=== PATIENT | male | born 1950 | race Caucasian/White ===

== ENCOUNTER 2016-05-16 14:07 | Observation (INO) | payer OTHER ==
[2016-05-16 14:17] VITALS: BMI 29.1
--- NOTE | 2016-05-16 16:03 | PDOC ---
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 Patients states he was at rehab when he kept hitting his chest and saying dolor. Patients states he also had a low blood pressure at the time. Denies vomiting diarrhea. Denies fever, chills, SOB. History is limited because patient is verbally limited. <Roni Luong - Last Filed: 05/16/16 17:13> <Brittny Martino - Last Filed: 05/16/16 22:18> - General Chief Complaint: Chest Pain Stated Complaint: CHEST PAIN Time Seen by Provider: 05/16/16 16:02 Past History <Roni Luong - Last Filed: 05/16/16 17:13> - Past Medical History CVA: Yes (the fascia, right-sided paralysis) GI Disorders: Yes Disorders: Yes (PROSTATE) HTN: Yes Hypercholesterolemia: Yes Psychiatric Problems: Yes - Surgical History Abdominal Surgery: Yes (HERNIA) - Psycho/Social/Smoking Cessation Hx Suicidal Ideation: No Smoking Status: No (QUIT 2 YRS AGO.) Smoking History: Never smoked Number of Cigarettes Smoked Daily: 0 Information on smoking cessation initiated: No <Brittny Martino - Last Filed: 05/16/16 22:18> - Past Medical History Allergies/Adverse Reactions: Allergies Allergy/AdvReac Type Severity Reaction Status Date / Time No Known Allergies Allergy Verified 05/16/16 14:17 Home Medications: Ambulatory Orders Aspirin Coated [Ecotrin] 81 mg PO DAILY 10/13/12 Baclofen 20 mg PO BID 10/13/12 Fenofibrate 160 mg PO DAILY 10/13/12 Paroxetine HCl [Paxil] 10 mg PO DAILY 10/13/12 Simvastatin [Zocor] 40 mg PO HS 10/13/12 Tamsulosin HCl 0.4 mg PO DAILY 10/13/12 Docusate Sodium [Colace -] 100 mg PO DAILY 05/16/16 Omeprazole 40 mg PO DAILY 05/16/16 Review of Systems - Review of Systems Able to Perform ROS?: No Comments:: 05/16/16 16:29 Limited. <Roni Luong - Last Filed: 05/16/16 17:13> *Physical Exam - Vital Signs Last Vital Signs Temp Pulse Resp BP Pulse Ox 98 F 100 H 18 112/75 93 L 05/16/16 14:09 05/16/16 14:09 05/16/16 14:09 05/16/16 14:09 05/16/16 14:09 - Physical Exam Comments: 05/16/16 16:29 GENERAL: Awake, alert, and fully oriented, in no acute distress HEAD: No signs of trauma EYES: PERRLA, EOMI, sclera anicteric, conjunctiva clear ENT: Auricles normal inspection, hearing grossly normal, nares patent, oropharynx clear without exudates. Moist mucosa NECK: Normal ROM, supple, no lymphadenopathy, JVD, or masses LUNGS: Breath sounds equal, clear to auscultation bilaterally. No wheezes, and no crackles HEART: Regular rate and rhythm, normal S1 and S2, no murmurs, rubs or gallops ABDOMEN: Soft, nontender, normoactive bowel sounds. No guarding, no rebound. No masses EXTREMITIES: Normal range of motion, no edema. No clubbing or cyanosis. No cords, erythema, or tenderness NEUROLOGICAL: Cranial nerves II through XII grossly intact. Normal speech, normal gait SKIN: Warm, Dry, normal turgor, no rashes or lesions noted. <ArceniojoannaRoni khan - Last Filed: 05/16/16 17:13> - Vital Signs Last Vital Signs Temp Pulse Resp BP Pulse Ox 98 F 100 H 18 112/75 93 L 05/16/16 14:09 05/16/16 14:09 05/16/16 14:09 05/16/16 14:09 05/16/16 14:09 <Brittny Martino - Last Filed: 05/16/16 22:18> Heart Score/ECG Review - ECG Impressions Comment:: EKG 14:14- tachycardia 100 bpm, no acute ST/T changes <Brittny Martino - Last Filed: 05/16/16 22:18> ED Treatment Course - LABORATORY CBC & Chemistry Diagram: 05/16/16 16:05 05/16/16 16:05 - ADDITIONAL ORDERS Additional order review: 05/16/16 16:05 RBC 4.86 MCV 90.6 MCHC 33.0 RDW 13.6 MPV 9.0 Neutrophils % 75.6 Lymphocytes % 15.7 D Monocytes % 7.2 Eosinophils % 1.0 D Basophils % 0.5 <Roni Luong - Last Filed: 05/16/16 17:13> - LABORATORY CBC & Chemistry Diagram: 05/16/16 16:05 05/16/16 16:05 - RADIOLOGY Radiology Studies Ordered: Category Date Time Status CHEST PA & LAT [RAD] Stat Radiology 05/16/16 15:33 Completed <Brittny Martino - Last Filed: 05/16/16 22:18> Medical Decision Making - Medical Decision Making 05/16/16 19:[address] Ching. He has very limited verbal communication, but today was indicating to his partner that he was having chest pain. He was noted to have low BP in rehab, as well. Unable to get any further details due to his limited communication. Labs so far have been negative. He was noted to have low O2Sat on initial evaluation. I have added a flu swab and CTA to r/o PE (although D-dimer is negative, cannot get any history from patient, so cannot definitely say whether or not it can be ruled in or out by clinical history). DDx includes ACS, PE, pna, pleural effusion. Likely admission. <Brittny Martino - Last Filed: 05/16/16 22:18> *DC/Admit/Observation/Transfer - Attestations Scribe Attestion: 05/16/16 16:29 Documentation prepared by Roni Luong, acting as medical or surgical instrument maker for Brittny Martino MD, . <Roni Luong - Last Filed: 05/16/16 17:13> <Brittny Martino - Last Filed: 05/16/16 22:18> Diagnosis at time of Disposition: Chest pain - Referrals
[2016-05-16 16:17] LABS: BASOPHIL 0.5 % (0-2.0); MCH 29.9 pg (25.7-33.7); MEAN CELL VOLUME 90.6 fl (80-96); NEUTROPHILS 75.6 % (42.8-82.8); PLATELET COUNT 249 K/MM3 (134-434); RDW 13.6 % (11.9-15.9); WHITE BLOOD COUNT 8.8 K/mm3 (4.0-10.0)
[2016-05-16 17:05] LABS: ALBUMIN 3.5 g/dl (3.4-5.0); ANION GAP 12 (8-16); CALCIUM 8.9 mg/dL (8.5-10.1); CO2 24 mmol/L (21-32); GLUCOSE,RANDOM 107 mg/dL (74-106); SGOT/AST 45 U/L (15-37); SGPT/ALT 60 U/L (12-78)
[2016-05-16 17:09] LABS: ALK PHOS 73 U/L (45-117); BILIRUBIN,TOTAL 0.5 mg/dL (0.2-1.0); TOT PROT 7.3 g/dl (6.4-8.2); TROPONIN I < 0.02 ng/ml (0.00-0.05)
[2016-05-16] MEDS ORDERED: ASPIRIN 81 MG CHEWABLE TABLETS PO ONE (21:14)
--- NOTE | 2016-05-16 21:14 | PDOC ---
*Physical Exam - Vital Signs Last Vital Signs Temp Pulse Resp BP Pulse Ox 99 F 84 18 121/72 93 L 05/16/16 16:41 05/16/16 16:41 05/16/16 14:09 05/16/16 16:41 05/16/16 14:09 Heart Score/ECG Review - History History: Slightly suspicious - Electrocardiogram EKG: Non specific repolarization disturbance - Age Age: >/= 65 - Risk Factors Risk Factors Heart Score: Yes Hx Hypercholesterolemia, Yes Hx Hypertension Based on the list above the patient has:: 1-2 risk factors - Troponin Troponin: </= normal limit - Score Heart Score - Total: 5 ED Treatment Course - LABORATORY CBC & Chemistry Diagram: 05/16/16 16:05 05/16/16 16:05 - ADDITIONAL ORDERS Additional order review: Laboratory Results 05/16/16 05/16/16 16:38 16:05 D-Dimer < 200 Sodium 137 Potassium 4.0 Chloride 101 Carbon Dioxide 24 Anion Gap 12 BUN 13 D Creatinine 1.0 D Creat Clearance w eGFR > 60 Random Glucose 107 H Calcium 8.9 Total Bilirubin 0.5 D AST 45 H D ALT 60 D Alkaline Phosphatase 73 Creatine Kinase 66 Troponin I < 0.02 Total Protein 7.3 Albumin 3.5 05/16/16 16:05 RBC 4.86 MCV 90.6 MCHC 33.0 RDW 13.6 MPV 9.0 Neutrophils % 75.6 Lymphocytes % 15.7 D Monocytes % 7.2 Eosinophils % 1.0 D Basophils % 0.5 *DC/Admit/Observation/Transfer Diagnosis at time of Disposition: Chest pain Qualifiers: Chest pain type: unspecified Qualified Code(s): R07.9 - Chest pain, unspecified - Discharge Dispostion Condition at time of disposition: Stable Admit: Yes - Referrals Referrals: River Verduzco MD [Primary Care Provider] - - Patient Instructions - Post Discharge Activity
--- NOTE | 2016-05-16 21:15 | PN ---
<Saravanan Borjakimberly - Last Filed: 05/16/16 21:15> Teaching Attending Note Name of Resident: Nataly Tyson ATTENDING PHYSICIAN STATEMENT I saw and evaluated the patient. I reviewed the resident's note and discussed the case with the resident. I agree with the resident's findings and plan as documented. SUBJECTIVE: OBJECTIVE: ASSESSMENT AND PLAN: <Rob Lancasterke - Last Filed: 05/16/16 22:42> Teaching Attending Note ATTENDING PHYSICIAN STATEMENT I saw and evaluated the patient. I reviewed the resident's note and discussed the case with the resident. I agree with the resident's findings and plan as documented. SUBJECTIVE: Patient is a 65 year old male, prior smoker, with significant past medical history of hypertension, BPH, HLD, GERD, CVA since 4 years ago with residual right-sided paralysis and aphasia who presents with chest pain. As per the patient was at rehab and developed a chest pain around noon today. As per the patient had rhinorrhea and dry cough for 3 days she notes that the cough is still present. He notes that the pain is exacerbated by cough. OBJECTIVE: Physical: VS: Last Vital Signs Temp Pulse Resp BP Pulse Ox 99 F 84 18 121/72 93 L 05/16/16 16:41 05/16/16 16:41 05/16/16 14:09 05/16/16 16:41 05/16/16 14:09 GEN: NAD HEENT: NCAT, PERRL CARD: RRR, S1 S2 RESP: CTAB ABD: NT, BWS x4 EXT: - CCE, brace on the right leg , unable to extend right arm LABS CBCD WBC 8.8 K/mm3 (4.0-10.0) 05/16/16 16:05 RBC 4.86 M/mm3 (4.00-5.60) 05/16/16 16:05 Hgb 14.5 GM/dL (11.7-16.9) 05/16/16 16:05 Hct 44.0 % (35.4-49) 05/16/16 16:05 MCV 90.6 fl (80-96) 05/16/16 16:05 MCHC 33.0 g/dl (32.0-35.9) 05/16/16 16:05 RDW 13.6 % (11.9-15.9) 05/16/16 16:05 Plt Count 249 K/MM3 (134-434) D 05/16/16 16:05 MPV 9.0 fl (7.5-11.1) 05/16/16 16:05 CMP Sodium 137 mmol/L (136-145) 05/16/16 16:05 Potassium 4.0 mmol/L (3.5-5.1) 05/16/16 16:05 Chloride 101 mmol/L (98-107) 05/16/16 16:05 Carbon Dioxide 24 mmol/L (21-32) 05/16/16 16:05 Anion Gap 12 (8-16) 05/16/16 16:05 BUN 13 mg/dL (7-18) D 05/16/16 16:05 Creatinine 1.0 mg/dL (0.7-1.3) D 05/16/16 16:05 Creat Clearance w eGFR > 60 (>60) 05/16/16 16:05 Calcium 8.9 mg/dL (8.5-10.1) 05/16/16 16:05 Total Bilirubin 0.5 mg/dL (0.2-1.0) D 05/16/16 16:05 AST 45 U/L (15-37) H D 05/16/16 16:05 ALT 60 U/L (12-78) D 05/16/16 16:05 Alkaline Phosphatase 73 U/L (45-117) 05/16/16 16:05 Total Protein 7.3 g/dl (6.4-8.2) 05/16/16 16:05 Albumin 3.5 g/dl (3.4-5.0) 05/16/16 16:05 IMAGING: Chest CTA Impression: There is no evidence of a pulmonary embolus in the main pulmonary artery and its proximal branches bilaterally. No acute lung disease or focal infiltrates identified. ASSESSMENT AND PLAN: 65 year old male with past medical history of HTN, HLD, BPH, former smoker, CVA who presents with chest pain 1.) Chest pain - R/o ACS - Heart score 5 - Trend troponins/ECG - Cardiology consult - Aspirin - O2 2 L NC - Morphine/nitro prn chest pain - Consider beta ron 2.) HTN - Continue Flomax 3.) HLD - Check lipid panel - Continue Zocor - Continue Fenofibrate 4.) CVA with residual right-sided paralysis and aphasia - Continue Aspirin 5.) BPH - Continue Flomax 6.) DVT ppx - Heparin 5,[address] in Observation-Tele. Documentation prepared by Farrukh Lancaster, acting as medical cost consultant for Roscoe Borja D.O.
[2016-05-16] MEDS ORDERED: ASPIRIN 81 MG CHEWABLE TABLETS ONE (21:19)
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
[2016-05-16] MEDS ORDERED: PATIENT'S OWN MEDICATION (NON-FORMULARY) (Baclofen [Baclofen] 20 MG) PO SCH (22:00)
[2016-05-16] MEDS ORDERED: PATIENT'S OWN MEDICATION (NON-FORMULARY) (Simvastatin 40 MG) PO SCH (22:00)
[2016-05-16] MEDS ORDERED: ATORVASTATIN CA 40 MG TABLET (FP) ONE (22:13)
[2016-05-16] MEDS ORDERED: BACLOFEN 10 MG TABLET (FP) ONE (22:13)
[2016-05-16] MEDS: BACLOFEN 10 MG TABLET (FP) PO SCH (22:17)
[2016-05-16] MEDS: ATORVASTATIN CA 20 MG TABLET (FP) PO SCH (22:17)
[2016-05-16] MEDS ORDERED: IBUPROFEN 600 MG TABLET (FP) PO PRN (22:40)
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
[2016-05-17] MEDS: HEPARIN NA (PORCINE) 5,000 UNITS/ML 1ML VIAL SQ SCH ×3 (06:20→22:05)
[2016-05-17 07:18] LABS: MCH 31.1 pg (25.7-33.7); MCHC 34.4 g/dl (32.0-35.9); MEAN CELL VOLUME 90.6 fl (80-96); MEAN PLT VOLUME 9.2 fl (7.5-11.1); PLATELET COUNT 208 K/MM3 (134-434); RDW 13.5 % (11.9-15.9); WHITE BLOOD COUNT 7.7 K/mm3 (4.0-10.0)
[2016-05-17 07:47] LABS: CALCIUM 8.5 mg/dL (8.5-10.1); MAGNESIUM 2.2 mg/dL (1.8-2.4); PHOSPHOROUS 3.3 mg/dL (2.5-4.9)
[2016-05-17 07:57] LABS: THYROID STIMULATING HORMONE 4.22 uIU/ml (0.358-3.74)
[2016-05-17 08:36] LABS: FREE T4 1.23 ng/dl (0.76-1.16)
[2016-05-17] MEDS ORDERED: PT OWN MED DRAWER 7, Y5N ONE (09:05)
[2016-05-17] MEDS: TAMSULOSIN HCL 0.4 MG CAP.ER.24H (FP) PO SCH (09:45)
[2016-05-17] MEDS: BACLOFEN 10 MG TABLET (FP) PO SCH ×2 (09:45→22:05)
[2016-05-17] MEDS: ASPIRIN 325 MG ENTERIC COATED TABLET (FP) PO SCH (09:45)
[2016-05-17] MEDS: FENOFIBRIC ACID 135 MG CAP PO SCH (09:45)
[2016-05-17] MEDS: DOCUSATE SODIUM 100 MG CAPSULE (FP) PO SCH (09:45)
[2016-05-17] MEDS: PANTOPRAZOLE 40 MG TABLET (FP) PO SCH (09:46)
[2016-05-17] MEDS ORDERED: PATIENT'S OWN MEDICATION (NON-FORMULARY) (Omeprazole 40 MG) PO SCH (10:00)
[2016-05-17] MEDS ORDERED: ASPIRIN 325 MG ENTERIC COATED TABLET (FP) PO SCH (10:00)
[2016-05-17] MEDS ORDERED: PATIENT'S OWN MEDICATION (NON-FORMULARY) (Fenofibrate [Fenofibrate] 160 MG) PO SCH (10:00)
--- NOTE | 2016-05-17 10:49 | PN ---
Progress Note (short form) - Note Progress Note: Chief Complaint: Events noted notes reviewed, chest pain syndrome History of Present Illness: Seen and examined on telemetry. Full consult dictated Medications: Current Medications Aspirin (Ecotrin -) 325 mg PO DAILY [facility] Last Admin: 05/17/16 09:45 Dose: 325 mg Atorvastatin Calcium (Lipitor -) 20 mg PO HS [facility] Last Admin: 05/16/16 22:17 Dose: 20 mg Baclofen (Lioresal -) 20 mg PO BID [facility] Last Admin: 05/17/16 09:45 Dose: 20 mg Docusate Sodium (Colace -) 100 mg PO DAILY [facility] Last Admin: 05/17/16 09:45 Dose: 100 mg Fenofibric Acid (Trilipix -) 135 mg PO DAILY [facility] Last Admin: 05/17/16 09:45 Dose: 135 mg Heparin Sodium (Porcine) (Heparin -) 5,000 unit SQ TID [facility] Last Admin: 05/17/16 06:20 Dose: 5,000 unit Ibuprofen (Motrin -) 600 mg PO Q6H PRN PRN Reason: FEVER Pantoprazole Sodium (Protonix -) 40 mg PO DAILY [facility] Last Admin: 05/17/16 09:46 Dose: 40 mg Paroxetine HCl (Paxil -) 10 mg PO DAILY [facility] Tamsulosin HCl (Flomax -) 0.4 mg PO DAILY [facility] Last Admin: 05/17/16 09:45 Dose: 0.4 mg Review of Systems Unable to obtain Vital Signs: Last Vital Signs Temp Pulse Resp BP Pulse Ox 98 F 88 20 107/72 94 L 05/17/16 06:00 05/17/16 06:00 05/17/16 06:00 05/17/16 06:00 05/16/16 22:38 Constitutional: No Distress Neck: Supple Negative JVD No Bruit Respiratory: Clear to A&P Bilaterally Cardiovascular: S1 S2 Regular Rate and Rhythm No Murmurs Clicks or Gallops Gastrointestinal: Soft Benign Normal Bowel Sounds Ext: Negative Edema Labs: Troponin, BNP 05/16/16 05/17/16 16:05 01:00 Troponin I < 0.02 < 0.02 CBC, BMP 05/17/16 05:35 05/17/16 05:35 Hepatic Panel Total Bilirubin 0.5 mg/dL (0.2-1.0) D 05/16/16 16:05 AST 45 U/L (15-37) H D 05/16/16 16:05 ALT 60 U/L (12-78) D 05/16/16 16:05 Alkaline Phosphatase 73 U/L (45-117) 05/16/16 16:05 Albumin 3.5 g/dl (3.4-5.0) 05/16/16 16:05 Assessment/Plan ASSESSMENT: 1. Chest pain syndrome CAD angina pectoris, but to be excluded 2. HTN 3. Hypercholesterolemia 4. CVA with residual deficit 5. History of GERD PLAN: 1. Add Toprol XL 2. Continue Lipitor and Trilipix 3. Continue ASA 4. Echocardiography for evaluation of LV function 5. Pharmacologic MPI study for evaluation of the above noted presentation Lupe Thomas M.D.
[2016-05-17] MEDS: PARoxetine HCL 10 MG TABLET (FP) PO SCH (11:41)
[2016-05-17] MEDS: METOPROLOL SUCCINATE 25 MG TAB.SR.24H (FP) PO SCH ×2 (12:46→16:27)
--- NOTE | 2016-05-17 12:53 | PN ---
Teaching Attending Note Name of Resident: Bo Clifford ATTENDING PHYSICIAN STATEMENT I saw and evaluated the patient. I reviewed the resident's note and discussed the case with the resident. I agree with the resident's findings and plan as documented. SUBJECTIVE:poor historian. answers yes to most questions. resting comfortable in the bed OBJECTIVE: Last Vital Signs Temp Pulse Resp BP Pulse Ox 98 F 88 20 107/72 94 L 05/17/16 06:00 05/17/16 06:00 05/17/16 06:00 05/17/16 06:00 05/16/16 22:38 General NAD, hard of hearing CV S1 S2 RRR no murmur/rub/gallop no chest wall tenderness Lungs CTA B/L no wheezing/rales/rhonchi ASSESSMENT AND PLAN: 65yo M with PMH HTN, BPH, CVA and GERD presented to the ER and was admitted for further evaluation of their emergent condition 1. CP- high risk factors. no events on monitor. no report of repeated CP. cardiac enzymes neg x2. NPO tonight for NMST in the AM. echo pending. cardio on board. 2. TSH-would repeat in 6 weeks. no indication for therapy here 3. CVA with residual R sided hemiparesis and aphasia- on asa 4. HTN- cont metoprolol 5. DVT ppx- Hep sq
[2016-05-17] MEDS ORDERED: DIPYRIDAMOLE 50 MG/10 ML VIAL IVPB ONE (12:54)
--- NOTE | 2016-05-17 13:37 | CONS ---
DATE OF CONSULTATION: 05/17/2016 HISTORY OF PRESENT ILLNESS: History was predominantly obtained from the chart. Patient has known history of cerebrovascular disease with a residual deficit including aphasia. This is a 65-year-old male with known history of cerebrovascular disease with residual deficits, right-sided weakness, expressive aphasia, hypertensive cardiovascular disease, hypercholesterolemia, who was brought to [facility] Emergency Room after reporting chest discomfort with physical therapy. Chest discomfort was noted during physical therapy, in view of which, patient presented to [facility] Emergency Room for further evaluation and management. Patient currently does not appear to be in any distress, and upon direct questioning, he does not report any chest discomfort. There was no reported dyspnea. No arrhythmia was noted. No additional history was obtainable. PAST MEDICAL HISTORY: Cerebrovascular disease with residual deficits, right-sided weakness, and expressive aphasia, hypertensive cardiovascular disease, and hypercholesterolemia. PAST SURGICAL HISTORY: Inguinal hernia repair. SOCIAL HISTORY: Prior history of smoking. In addition, prior history of alcohol abuse. FAMILY HISTORY: No family history of premature coronary artery disease. ALLERGIES: None reported. MEDICAL THERAPY: At home included: 1. Ecotrin 81 mg once a day. 2. Baclofen 20 mg twice a day. 3. Fenofibrate 160 mg once a day. 4. Paxil 10 mg once a day. 5. Zocor 40 mg once a day. 6. Flomax 0.4 mg once a day. 7. Colace 100 mg once a day. 8. Omeprazole 40 mg once a day for gastroesophageal reflux disease. REVIEW OF SYSTEMS: Unable to obtain related to the above noted expressive aphasia. PHYSICAL EXAMINATION: Vital signs: Blood pressure is 107/72 mmHg, pulse rate is 88 beats per minute. Head and neck: Pupils are equally reactive to light and accommodation. Extraocular muscles are intact. Anicteric sclerae. Negative JVD. No bruit appreciated. Chest: Clear to auscultation and percussion. Cardiovascular: S1, S2 regular. No murmurs, clicks, or gallops. Abdomen: Soft, benign. Normoactive bowel sounds. Extremities: Negative edema. Intact distal pulses. No calf tenderness. STUDIES: Electrocardiogram reveals sinus tachycardia with non-specific T-wave abnormality. CPK and troponin levels were noted. CBC revealed a white cell count of 7.7, hemoglobin 14.4, platelet count 208. Basic metabolic profile revealed sodium 139, potassium 4.0, BUN of 14, creatinine 1.0, glucose 97. Liver function testing was noted. ASSESSMENT: 1. Chest pain syndrome and coronary artery disease. Angina pectoris to be excluded. 2. Hypertensive cardiovascular disease. 3. Hypercholesterolemia. 4. Cerebrovascular disease with residual deficit. 5. History of gastroesophageal reflux disease. RECOMMENDATION: 1. Addition of Toprol. 2. Continuation of Lipitor and Trilipix formulary therapy. 3. Continuation of aspirin. 4. Echocardiography for evaluation of left ventricular size and function. 5. Pharmacologic myocardial perfusion imaging study for evaluation of the above noted clinical presentation. Thank you for the kind referral. LEWIS UP M.D. [id number]
--- NOTE | 2016-05-17 14:23 | PN ---
Physical Exam: SUBJECTIVE: Patient seen and examined at bedside. He's Italian speaking and hard at hearing. He stated he does not have any chest pain or shortness of breath and felt OK overnight. Per nurse, he did not have fever, chills, n/v, chest pain overnight. senior web applications developer also showed no acute event. OBJECTIVE: Vital Signs Period Temp Pulse Resp BP Sys/Garza Pulse Ox Last 24 Hr 98 F-98.4 F 84-88 15-20 99-107/54-72 94 GENERAL: The patient is awake, alert, and fully oriented, able to speak full sentences, in no acute distress. NECK: no jvd or bruits LUNGS: CTA, no wheeze, crackle or rhonchi bilaterally HEART: RRR, normal S1 and S2, no murmurs or rubs ABDOMEN: Soft, nontender, moderately distended, normoactive bowel sounds, no guarding, no rebound, hepatosplenomegaly NEURO: R sided hemiplegia with 0/5 strength. normal strength in L side. Laboratory Results - last 24 hr 05/17/16 05/17/16 05/17/16 01:00 05:35 05:35 WBC 7.7 RBC 4.64 Hgb 14.4 Hct 42.0 MCV 90.6 MCHC 34.4 RDW 13.5 Plt Count 208 MPV 9.2 Sodium 139 Potassium 4.0 Chloride 106 Carbon Dioxide 24 Anion Gap 9 BUN 14 Creatinine 1.0 Random Glucose 97 Calcium 8.5 Phosphorus 3.3 Magnesium 2.2 Troponin I < 0.02 Triglycerides 135 Cholesterol 106 Total LDL Cholesterol 71 HDL Cholesterol 21 L TSH 4.22 H Free T4 1.23 H 05/17/16 05:35 WBC RBC Hgb Hct MCV MCHC RDW Plt Count MPV Sodium Potassium Chloride Carbon Dioxide Anion Gap BUN Creatinine Random Glucose Calcium Phosphorus Magnesium Troponin I Triglycerides Cancelled Cholesterol Cancelled Total LDL Cholesterol Cancelled HDL Cholesterol Cancelled TSH Free T4 Cancelled Active Medications Generic Name Dose Route Start Last Admin Trade Name Karina PRN Reason Stop Dose Admin Aspirin 325 mg 05/17/16 10:00 05/17/16 09:45 Ecotrin - PO 325 mg DAILY GINA Administration Atorvastatin Calcium 20 mg 05/16/16 22:00 05/16/16 22:17 Lipitor - PO 20 mg HS GINA Administration Baclofen 20 mg 05/16/16 22:00 05/17/16 09:45 Lioresal - PO 20 mg BID GINA Administration Docusate Sodium 100 mg 05/17/16 10:00 05/17/16 09:45 Colace - PO 100 mg DAILY GINA Administration Fenofibric Acid 135 mg 05/17/16 10:00 05/17/16 09:45 Trilipix - PO 135 mg DAILY GINA Administration Heparin Sodium (Porcine) 5,000 unit 05/17/16 06:00 05/17/16 06:20 Heparin - SQ 5,000 unit TID GINA Administration Ibuprofen 600 mg 05/16/16 22:40 Motrin - PO Q6H PRN FEVER Metoprolol Succinate 25 mg 05/17/16 11:30 05/17/16 12:46 Toprol Xl - PO Not Given DAILY GINA Pantoprazole Sodium 40 mg 05/17/16 10:00 05/17/16 09:46 Protonix - PO 40 mg DAILY GINA Administration Paroxetine HCl 10 mg 05/17/16 10:00 05/17/16 11:41 Paxil - PO 10 mg DAILY GINA Administration Tamsulosin HCl 0.4 mg 05/17/16 10:00 05/17/16 09:45 Flomax - PO 0.4 mg DAILY GINA Administration Imaging studies: CXR: unremarkable CTA: negative for PE or acute pathology EKG: unremarkable ASSESSMENT/PLAN: 65 yo M with h/o HTN, HLD, tobacco and EtOH abuse, GERD and R sided hemiplegia s /p CVA 4 yrs ago 2/2 physical trauma/hemorrhage admitted to telemetry for atypical chest pain. Atypical chest pain - Heart score 5 - normal EKG with -ve trop x 2 - LDL at goal with low HDL - cont. lipitor, trilipix, aspirin * added metoprolol - f/u ECHO - stress test tomorrow HTN - stable off meds - added metoprolol HLD - cont. lipitor R sided hemiplegia s/p CVA - h/o short term aphagia - patient f/u with rehab as outpatient FEN - IVF not indicated - normal lytes - NPO after midnight for stress test Prophylaxis - DVT: heparin - GI: not indicated - deconditioning: early ambulation Dispo: d/c after stress test. Visit type - Emergency Visit Emergency Visit: No - New Patient This patient is new to me today: Yes Date on this admission: 05/17/16 - Critical Care Critical Care patient: No - Discharge Referral Referred to [facility] Med P.C.: No
[2016-05-17] MEDS ORDERED: WATER IVPB ONE (16:00)
[2016-05-17] MEDS ORDERED: DIPYRIDAMOLE STRESS TEST IVPB ONE (16:00)
[2016-05-17] MEDS ORDERED: DEXTROSE 5% IVPB ONE (16:00)
--- NOTE | 2016-05-17 18:04 | EKG ---
Test Reason : Blood Pressure : / mmHG Vent. Rate : 100 BPM Atrial Rate : 100 BPM P-R Int : 148 ms QRS Dur : 080 ms QT Int : 336 ms P-R-T Axes : 016 010 053 degrees QTc Int : 433 ms NORMAL SINUS RHYTHM POSSIBLE LEFT ATRIAL ENLARGEMENT INFERIOR INFARCT , AGE UNDETERMINED ABNORMAL ECG NO PREVIOUS ECGS AVAILABLE Confirmed by SRINI BARR, TAHIRA ([id number]) on 05/17/2016 6:04:24 PM Referred By: Confirmed By:TAHIRA MILLIGAN MD
[2016-05-17] MEDS: ATORVASTATIN CA 20 MG TABLET (FP) PO SCH (22:05)
[2016-05-18] MEDS: HEPARIN NA (PORCINE) 5,000 UNITS/ML 1ML VIAL SQ SCH ×2 (06:20→14:02)
--- NOTE | 2016-05-18 07:48 | PN ---
Physical Exam: SUBJECTIVE: Patient seen and examined at bedside. He's Maori speaking and hard at hearing. He c/o no chest pain or shortness of breath. Per nurse, he did not have fever, chills, n/v, chest pain overnight. 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 OBJECTIVE: Vital Signs Period Temp Pulse Resp BP Sys/Garza Pulse Ox Last 24 Hr 98 F-99 F 57-85 15-20 99-106/58-72 94-94 GENERAL: The patient is awake, alert, and fully oriented, able to speak full sentences, in no acute distress. NECK: no jvd or bruits LUNGS: CTA, no wheeze, crackle or rhonchi bilaterally HEART: RRR, normal S1 and S2, no murmurs or rubs ABDOMEN: Soft, nontender, moderately distended, normoactive bowel sounds, no guarding, no rebound, hepatosplenomegaly NEURO: R sided hemiplegia with 0/5 strength. normal strength in L side. Laboratory Results - last 24 hr 05/17/16 05/17/16 05/17/16 05:35 05:35 05:35 WBC 7.7 RBC 4.64 Hgb 14.4 Hct 42.0 MCV 90.6 MCHC 34.4 RDW 13.5 Plt Count 208 MPV 9.2 Sodium 139 Potassium 4.0 Chloride 106 Carbon Dioxide 24 Anion Gap 9 BUN 14 Creatinine 1.0 Random Glucose 97 Calcium 8.5 Phosphorus 3.3 Magnesium 2.2 Triglycerides 135 Cancelled Cholesterol 106 Cancelled Total LDL Cholesterol 71 Cancelled HDL Cholesterol 21 L Cancelled TSH 4.22 H Free T4 1.23 H Cancelled Active Medications Generic Name Dose Route Start Last Admin Trade Name Michaelq PRN Reason Stop Dose Admin Aspirin 325 mg 05/17/16 10:00 05/17/16 09:45 Ecotrin - PO 325 mg DAILY GINA Administration Atorvastatin Calcium 20 mg 05/16/16 22:00 05/17/16 22:05 Lipitor - PO 20 mg HS GINA Administration Baclofen 20 mg 05/16/16 22:00 05/17/16 22:05 Lioresal - PO 20 mg BID GINA Administration Docusate Sodium 100 mg 05/17/16 10:00 05/17/16 09:45 Colace - PO 100 mg DAILY GINA Administration Fenofibric Acid 135 mg 05/17/16 10:00 05/17/16 09:45 Trilipix - PO 135 mg DAILY GINA Administration Heparin Sodium (Porcine) 5,000 unit 05/17/16 06:00 05/18/16 06:20 Heparin - SQ 5,000 unit TID GINA Administration Ibuprofen 600 mg 05/16/16 22:40 Motrin - PO Q6H PRN FEVER Metoprolol Succinate 25 mg 05/17/16 11:30 05/17/16 16:27 Toprol Xl - PO 25 mg DAILY GINA Administration Pantoprazole Sodium 40 mg 05/17/16 10:00 05/17/16 09:46 Protonix - PO 40 mg DAILY GINA Administration Paroxetine HCl 10 mg 05/17/16 10:00 05/17/16 11:41 Paxil - PO 10 mg DAILY GINA Administration Tamsulosin HCl 0.4 mg 05/17/16 10:00 05/17/16 09:45 Flomax - PO 0.4 mg DAILY GINA Administration ASSESSMENT/PLAN: 65 yo M with h/o HTN, HLD, tobacco and EtOH abuse, GERD and R sided hemiplegia s /p CVA 4 yrs ago 2/2 physical trauma/hemorrhage admitted to telemetry for atypical chest pain. Atypical chest pain - Heart score 5 - normal EKG with -ve trop x 2 - LDL at goal with low HDL - cont. lipitor, trilipix, aspirin * added metoprolol - f/u ECHO - stress test today HTN - stable off meds - added metoprolol HLD - cont. lipitor R sided hemiplegia s/p CVA - h/o short term aphagia - patient f/u with rehab as outpatient FEN - IVF not indicated - normal lytes - NPO for stress test Prophylaxis - DVT: heparin - GI: not indicated - deconditioning: early ambulation Dispo: d/c after stress test. Visit type - Emergency Visit Emergency Visit: No - New Patient This patient is new to me today: No - Critical Care Critical Care patient: No - Discharge Referral Referred to [facility] Med P.C.: No
[2016-05-18 08:08] VITALS: BP 105/57
--- NOTE | 2016-05-18 09:26 | PN ---
Progress Note, Physician History of Present Illness: No further chest pain or dyspnea. - Current Medication List Current Medications: Active Medications Aspirin (Ecotrin -) 325 mg PO DAILY [facility] Last Admin: 05/17/16 09:45 Dose: 325 mg Atorvastatin Calcium (Lipitor -) 20 mg PO HS [facility] Last Admin: 05/17/16 22:05 Dose: 20 mg Baclofen (Lioresal -) 20 mg PO BID [facility] Last Admin: 05/17/16 22:05 Dose: 20 mg Docusate Sodium (Colace -) 100 mg PO DAILY [facility] Last Admin: 05/17/16 09:45 Dose: 100 mg Fenofibric Acid (Trilipix -) 135 mg PO DAILY [facility] Last Admin: 05/17/16 09:45 Dose: 135 mg Heparin Sodium (Porcine) (Heparin -) 5,000 unit SQ TID [facility] Last Admin: 05/18/16 06:20 Dose: 5,000 unit Ibuprofen (Motrin -) 600 mg PO Q6H PRN PRN Reason: FEVER Metoprolol Succinate (Toprol Xl -) 25 mg PO DAILY [facility] Last Admin: 05/17/16 16:27 Dose: 25 mg Pantoprazole Sodium (Protonix -) 40 mg PO DAILY [facility] Last Admin: 05/17/16 09:46 Dose: 40 mg Paroxetine HCl (Paxil -) 10 mg PO DAILY [facility] Last Admin: 05/17/16 11:41 Dose: 10 mg Tamsulosin HCl (Flomax -) 0.4 mg PO DAILY [facility] Last Admin: 05/17/16 09:45 Dose: 0.4 mg - Objective Vital Signs: Vital Signs Temperature 98.2 F 05/18/16 08:07 Pulse Rate 57 L 05/18/16 08:07 Respiratory Rate 20 05/18/16 08:07 Blood Pressure 105/57 05/18/16 08:07 O2 Sat by Pulse Oximetry (%) 94 L 05/18/16 08:06 Constitutional: Yes: No Distress, Calm Neck: Yes: Supple Cardiovascular: Yes: Regular Rate and Rhythm Respiratory: Yes: Regular, CTA Bilaterally Gastrointestinal: Yes: Normal Bowel Sounds, Soft Edema: No Labs: CBC, BMP 05/17/16 05:35 05/17/16 05:35 - ....Imaging EKG: Report Reviewed (Tele shows episodes of PAT) Problem List - Problems (1) Chest pain Code(s): R07.9 - CHEST PAIN, UNSPECIFIED Qualifiers: Chest pain type: unspecified Qualified Code(s): R07.9 - Chest pain, unspecified (2) Aphasia complicating stroke Code(s): I63.9 - CEREBRAL INFARCTION, UNSPECIFIED R47.01 - APHASIA (3) CVA, old, alterations of sensations Code(s): I69.398 - OTHER SEQUELAE OF CEREBRAL INFARCTION R20.9 - UNSPECIFIED DISTURBANCES OF SKIN SENSATION (4) HLD (hyperlipidemia) Code(s): E78.5 - HYPERLIPIDEMIA, UNSPECIFIED Qualifiers: Hyperlipidemia type: pure hypercholesterolemia Qualified Code(s): E78.0 - Pure hypercholesterolemia (5) HTN (hypertension) Code(s): I10 - ESSENTIAL (PRIMARY) HYPERTENSION Qualifiers: Hypertension type: essential hypertension Qualified Code(s): I10 - Essential (primary) hypertension (6) Paroxysmal atrial tachycardia Code(s): I47.1 - SUPRAVENTRICULAR TACHYCARDIA Assessment/Plan Echocardiogram: Normal LV size and fxn without sig valve abnl P-Myoview: No ischemia, LVEF 74% 1. Chest pain syndrome with MPI negative for ischemia 2. HTN 3. Hypercholesterolemia 4. CVA with residual deficit 5. History of GERD 6. Paroxysmal atrial tachycardia->SR PLAN: 1. Continue Toprol XL 25 qd 2. Continue Lipitor 20 qhs and Trilipix 135 qd 3. Continue ASA 325 qd 4. May d/c back to facility
[2016-05-18] MEDS: TAMSULOSIN HCL 0.4 MG CAP.ER.24H (FP) PO SCH (09:34)
[2016-05-18] MEDS: PARoxetine HCL 10 MG TABLET (FP) PO SCH (09:34)
[2016-05-18] MEDS: FENOFIBRIC ACID 135 MG CAP PO SCH (09:34)
[2016-05-18] MEDS: DOCUSATE SODIUM 100 MG CAPSULE (FP) PO SCH (09:35)
[2016-05-18] MEDS: METOPROLOL SUCCINATE 25 MG TAB.SR.24H (FP) PO SCH (09:35)
[2016-05-18] MEDS: PANTOPRAZOLE 40 MG TABLET (FP) PO SCH (09:35)
[2016-05-18] MEDS: ASPIRIN 325 MG ENTERIC COATED TABLET (FP) PO SCH (09:35)
[2016-05-18] MEDS: BACLOFEN 10 MG TABLET (FP) PO SCH (09:35)
--- NOTE | 2016-05-18 10:51 | PN ---
Teaching Attending Note Name of Resident: Bo Clifford ATTENDING PHYSICIAN STATEMENT I saw and evaluated the patient. I reviewed the resident's note and discussed the case with the resident. I agree with the resident's findings and plan as documented. SUBJECTIVE:currently asymptomatic. denies CP, SOB,fever, chills, N/V/C/D OBJECTIVE: Last Vital Signs Temp Pulse Resp BP Pulse Ox 98.2 F 57 L 20 105/57 94 L 05/18/16 08:07 05/18/16 08:07 05/18/16 08:07 05/18/16 08:07 05/18/16 08:06 General NAD, hard of hearing CV S1 S2 RRR no murmur/rub/gallop no chest wall tenderness Lungs CTA B/L no wheezing/rales/rhonchi ASSESSMENT AND PLAN: 65yo M with PMH HTN, BPH, CVA and GERD presented to the ER and was admitted for further evaluation of their emergent condition 1. CP- high risk factors. no repeated episodes of CP. noted on monitor SVT. started on beta ron with improvement. NMST and echo normal with no WMA. 2. TSH-would repeat in 6 weeks. no indication for therapy here 3. CVA with residual R sided hemiparesis and aphasia- on asa 4. HTN- cont metoprolol 5. DVT ppx- Hep sq 6. d/c home with PMD and cardio follow up
[2016-05-18 14:02] VITALS: PULSE 69; TEMP 98
--- NOTE | 2016-05-18 15:42 | DS ---
Physical Exam: SUBJECTIVE: Patient seen and examined at bedside. He's Mongolian speaking and hard at hearing. He c/o no chest pain or shortness of breath. Per nurse, he did not have fever, chills, n/v, chest pain overnight. special procedure technologist also showed no acute event. OBJECTIVE: Vital Signs Period Temp Pulse Resp BP Sys/Garza Pulse Ox Last 24 Hr 98 F-99 F 57-85 18-20 101-106/57-70 94-94 PHYSICAL EXAM RAL: The patient is awake, alert, and fully oriented, able to speak full sentences, in no acute distress. NECK: no jvd or bruits LUNGS: CTA, no wheeze, crackle or rhonchi bilaterally HEART: RRR, normal S1 and S2, no murmurs or rubs ABDOMEN: Soft, nontender, moderately distended, normoactive bowel sounds, no guarding, no rebound, hepatosplenomegaly NEURO: R sided hemiplegia with 0/5 strength. normal strength in L side. LABS HOSPITAL COURSE: Date of Admission:05/16/16 65 yo M with h/o HTN, HLD, tobacco and EtOH abuse, GERD and R sided hemiplegia s /p CVA 4 yrs ago 2/2 physical trauma/hemorrhage admitted to hospital for atypical chest pain. Patient's EKG, stress test, troponins and ECHO were all negative. Therefore, ACS was ruled out. The chest pain was likely pleuritic or due to GERD. However, patient does carry many risk factors for ACS. As a result , he is discharged home on aspirin, toprol xl, zocor. 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 Date of Discharge: 05/18/16 Minutes to complete discharge: 45 Discharge Summary Reason For Visit: CHEST PAIN Condition: Improved - Instructions Diet, Activity, Other Instructions: Instruction for continuing care: You were admitted to the hospital because of chest pain. However, extensive workup has not revealed any significant cardiac disease. You are now in stable condition to go home. Please continue to take all your home medications and follow up with your primary medical doctor (Dr. Verduzco) and heart doctor ( Dr. Thomas) within a week. Referrals: Lupe Thomas MD [Staff Physician] - River Verduzco MD [Primary Care Provider] - Disposition: HOME - Home Medications Comprehensive Discharge Medication List: Ambulatory Orders Baclofen 20 mg PO BID 10/13/12 Fenofibrate 160 mg PO DAILY 10/13/12 Tamsulosin HCl 0.4 mg PO DAILY 10/13/12 Aspirin Coated [Ecotrin -] 81 mg PO DAILY #0 05/18/16 Docusate Sodium [Colace -] 100 mg PO DAILY #0 05/18/16 Metoprolol Succinate [Toprol XL -] 25 mg PO DAILY #30 tab.sr.24h 05/18/16 Omeprazole 40 mg PO DAILY #0 05/18/16 Paroxetine HCl [Paxil -] 10 mg PO DAILY #0 05/18/16 Simvastatin [Zocor -] 40 mg PO HS #0 05/18/16 This patient is new to me today: No Emergency Visit: No Critical Care patient: No - Discharge Referral Referred to [facility] No
== END 2016-05-18 15:20 | disposition home or self-care (01) ==
LOC: JER 14:07 → INTOOBSV 21:29 → UNDOADMOB 21:29 → JERBED 21:29 → J4W 23:51 → JERBED 23:51
PROVIDERS: ADMIT Internal Medicine; ATTEND Internal Medicine
DX: R07.89 Other chest pain (principal); I69.351 Hemiplegia and hemiparesis following cerebral infarction affecting right dominant side; R47.01 Aphasia; E78.00 Pure hypercholesterolemia, unspecified; I10 Essential (primary) hypertension; N40.0 Benign prostatic hyperplasia without lower urinary tract symptoms; K21.9 Gastro-esophageal reflux disease without esophagitis; I47.1 Supraventricular tachycardia
CPT/HCPCS: 36415; 71020-TC; 71275-TC; 78452-TC; 80048; 80053; 80061; 82550; 83721; 83735; 84100; 84439; 84443; 84484; 85025; 85027; 85379; 87254; 87804; 93005; 93010; 93017; 93306-TC; 99284-25; A9502; G0378; J0475; J1245; J1644